=== PATIENT | male | born 1950 | race Caucasian/White ===

== ENCOUNTER 2016-10-09 21:16 | Emergency (ER) | payer OTHER ==
[~2016-10-09] VITALS: Ht 180.3 cm; Wt 110.0 kg
[~2016-10-09 21:16] MED LIST: ASPI81 PO; CORE25TA PO; CYCL-36 PO; FISH1000 PO; GLUCTAB OR; IMDU30TA PO; LISI10TA PO; LORTA10 PO; NORV2.5T11 PO; ROSU20 PO; TAB-TAB PO
[2016-10-09 21:22] VITALS: BP 215/97; PULSE 59; RESP 18; TEMP 98.2; O2SAT 92
--- NOTE | 2016-10-09 21:22 | PD ---
HPI Chief Complaint: Headache, high BP Time Seen by Provider: 21:22 Travel History International Travel<30 days: No Contact w/Intl Traveler<30days: No Traveled to known affect area: No History of Present Illness HPI 66-year-old male came to the emergency room with history of headache and hypertension. Patient says that he has had this headache for 1 week now. He called EMS today and they noticed that his blood pressure was above 200. He is describing the headache in the frontal area with no radiation. He vomited 3 times this morning. No history of fever or chills. Patient was afebrile in the emergency room. He has history of congestive heart failure and has been on Lasix. He requires CPAP at home and has been using it. He does not usually get headaches and this time he has been unable to control it with Tylenol and Motrin. No aggravating or relieving factors that he is identified. He is awake and answering questions appropriately. His blood pressure upon arrival was 215 systolic. Patient says that he was diagnosed with cellulitis of his right leg. His primary care did an ultrasound to rule out DVT and it was negative. He was started on antibiotic which was amoxicillin along with 2 shots of Rocephin. He says his leg feels better now. [facility] Past Medical History Narrative Medical List of his past medical, surgical, social and family history reviewed from the nursing note. Cardiac Catheterization: Yes (1998) Cardiovascular Problems: Yes (4 CARDIAC CATHS) High Cholesterol: Yes Chest Pain: Yes Congestive Heart Failure: Yes COPD: Yes Coronary Artery Disease: Yes Diabetes: Yes Diminished Hearing: No GERD: Yes Hypertension: Yes Immune Disorder: Yes (MEDICATION INDUCED LUPUS) Kidney Stones: Yes Musculoskeletal: No Neurologic: No Psychiatric: No Respiratory: Yes Myocardial Infarction: Yes Renal Failure: Yes Sleep Apnea: Yes (USES CPAP AT HOME ) Past Surgical History Abdominal Surgery: Yes (BILAT INGUINAL HERNIA REPAIR) Cardiac Surgery: Yes (OPEN HEART SURGERY CABG X5) Coronary Artery Bypass Graft: Yes (1998) Tonsillectomy: Yes Other Surgery: Yes Family History Family Hypercholesterolemia: Yes Social History Alcohol Use: No Tobacco Use: Yes (1 PPD) Substance Use: No Allergies-Medications (Allergen,Severity, Reaction): Coded Allergies: Cipro (Verified Allergy, Severe, HIVES, SOB, 10/09/16) Hydralazine (Verified Allergy, Severe, DRUG INDUCED LUPUS, 10/09/16) Sulfa (Verified Allergy, Severe, HIVES, SOB, 10/09/16) Keflex (Verified Allergy, Unknown, hives, 10/09/16) Advair (Verified Adverse Reaction, Severe, 10/09/16) Chantix (Verified Adverse Reaction, Severe, SUICIDAL, 10/09/16) Percocet (Verified Adverse Reaction, Severe, HALLUCINATIONS, 10/09/16) Comments List of his allergies reviewed from the nursing note Reported Meds & Prescriptions Reported Meds & Active Scripts Active Clonidine (Clonidine HCl) 0.1 Mg Tab 0.1 Mg PO BID PRN Omxjedswws-Hdoixeyinfvzj-Ewaufdqm 50-325-40 Mg Cap 1-2 Cap PO Q4H PRN Do not exceed 6 capsules/day. Reported Metformin (Metformin HCl) 500 Mg Tab 500 Mg PO DAILY With a meal Citalopram (Citalopram Hydrobromide) 20 Mg Tab 20 Mg PO DAILY Gabapentin 600 Mg Tab 600 Mg PO TID Aspirin 81 Mg Chew 81 Mg CHEW DAILY Fenofibrate 160 Mg Tab 160 Mg PO DAILY Glipizide 5 Mg Tab 2.5 Mg PO BIDAC Take 30 minutes before a meal Omeprazole 20 Mg Tab 20 Mg PO DAILY Ibuprofen 800 Mg Tab 800 Mg PO Q6HR PRN Atorvastatin (Atorvastatin Calcium) 80 Mg Tab 80 Mg PO HS Losartan (Losartan Potassium) 100 Mg Tab 100 Mg PO DAILY Carvedilol 25 Mg Tab 25 Mg PO BID Isosorbide Mononitrate ER (Isosorbide Mononitrate) 30 Mg Irish 30 Mg PO BID Narrative Medication Most of his home medications reviewed from the nursing note Review of Systems Except as stated in HPI: all other systems reviewed are Neg Physical Exam Narrative GENERAL: Awake, alert, morbidly obese, moderate distress SKIN: Focused skin assessment warm/dry. HEAD: Atraumatic. Normocephalic. EYES: Pupils equal and round. No scleral icterus. No injection or drainage. ENT: No nasal bleeding or discharge. Mucous membranes pink and moist. NECK: Trachea midline. No JVD. Neck is supple with no meningismus. CARDIOVASCULAR: Regular rate and rhythm. No murmur appreciated. RESPIRATORY: No accessory muscle use. Bibasilar crackles GASTROINTESTINAL: Abdomen soft, non-tender, nondistended. Hepatic and splenic margins not palpable. MUSCULOSKELETAL: No obvious deformities. No clubbing. No cyanosis. Bilateral pedal edema right more than left. NEUROLOGICAL: Awake and alert. No obvious cranial nerve deficits. Motor grossly within normal limits. Normal speech. PSYCHIATRIC: Appropriate mood and affect; insight and judgment normal. Data Data Last Documented VS Vital Signs Date Time Temp Pulse Resp B/P Pulse Ox O2 Delivery O2 Flow Rate FiO2 10/10/16 00:13 96 Nasal Cannula 2.00 10/10/16 00:06 98.7 63 22 161/79 Orders Electrocardiogram (10/09/16 21:32) Prothrombin Time / Inr (Pt) (10/09/16 21:32) Complete Blood Count With Diff (10/09/16 21:32) Basic Metabolic Panel (Bmp) (10/09/16 21:32) Creatine Kinase (Cpk) (10/09/16 21:32) Troponin I (10/09/16 21:32) Ct Brain W/O Iv Contrast(Rout) (10/09/16 21:32) Chest, Single Ap (10/09/16 21:32) Ecg Monitoring (10/09/16 21:32) Iv Access Insert/Monitor (10/09/16 21:32) Oximetry (10/09/16 21:32) Sodium Chloride 0.9% Flush (Ns Flush) (10/09/16 21:45) Prochlorperazine Inj (Compazine Inj) (10/09/16 21:45) B-Type Natriuretic Peptide (10/09/16 21:32) Clonidine (Catapres) (10/09/16 21:45) Isosorbide Dinitrate (Isordil) (10/09/16 23:30) Clonidine (Catapres) (10/09/16 23:30) Morphine Inj (Morphine Inj) (10/10/16 00:00) Albuterol-Ipratropium Neb (Duoneb Neb) (10/10/16 00:15) Furosemide Inj (Lasix Inj) (10/10/16 00:15) Labs Laboratory Tests Test 10/09/16 21:35 White Blood Count 14.2 TH/MM3 Red Blood Count 4.85 MIL/MM3 Hemoglobin 14.9 GM/DL Hematocrit 43.1 % Mean Corpuscular Volume 88.8 FL Mean Corpuscular Hemoglobin 30.7 PG Mean Corpuscular Hemoglobin 34.6 % Concent Red Cell Distribution Width 14.8 % Platelet Count 261 TH/MM3 Mean Platelet Volume 8.8 FL Neutrophils (%) (Auto) 80.4 % Lymphocytes (%) (Auto) 9.8 % Monocytes (%) (Auto) 7.7 % Eosinophils (%) (Auto) 1.6 % Basophils (%) (Auto) 0.5 % Neutrophils # (Auto) 11.4 TH/MM3 Lymphocytes # (Auto) 1.4 TH/MM3 Monocytes # (Auto) 1.1 TH/MM3 Eosinophils # (Auto) 0.2 TH/MM3 Basophils # (Auto) 0.1 TH/MM3 CBC Comment DIFF FINAL Differential Comment Prothrombin Time 11.7 SEC Prothromb Time International 1.1 RATIO Ratio Sodium Level 144 MEQ/L Potassium Level 3.6 MEQ/L Chloride Level 105 MEQ/L Carbon Dioxide Level 32.3 MEQ/L Anion Gap 7 MEQ/L Blood Urea Nitrogen 9 MG/DL Creatinine 1.19 MG/DL Estimat Glomerular Filtration 61 ML/MIN Rate Random Glucose 113 MG/DL Calcium Level 9.4 MG/DL Total Creatine Kinase 91 U/L Troponin I 0.03 NG/ML B-Type Natriuretic Peptide 471 PG/ML MDM Medical Decision Making Medical Screen Exam Complete: Yes Emergency Medical Condition: Yes Medical Record Reviewed: Yes Interpretation(s) Twelve-lead EKG was reviewed by me. Normal sinus rhythm, left axis deviation, right bundle branch block, nonspecific ST-T wave changes, bradycardia. Heart rate of 59 bpm. Differential Diagnosis Tension headache, status migrainous, intracranial bleed, hypertensive urgency, congestive heart failure Narrative Course 10:11 PM awaiting for the blood test results to come back. Patient was given IV Compazine for the headache. I also ordered 0.2 mg of clonidine for the blood pressure. I will reassess him in a bit. 12:04 AM I reassessed the patient. His blood pressure had remained high and I gave a dose of Imdur and a second dose of clonidine. When I went back to check his blood pressure was 160 systolic. Patient told me that his headache was 9 out of 10 and he was feeling claustrophobic. I offered him some anxiolytic and he refused and said that he needs something stronger for his headache since the medications given so far are not helping. I let him know that I would order the morphine but that will not take care of the underlying cause of the headache. My nurse just came out of the room and said that patient said his headache was easing off and this was prior to getting morphine. 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 At this point given the rest of the negative workup I'm planning to discharge him. His chest x-ray was suggestive of congestive heart failure. He'll get 40 mg of IV Lasix as well. Procedures EKG Prior to Arrival: No Diagnosis Primary Impression: Hypertensive urgency Additional Impressions: Headache Qualified Code: R51 - Acute intractable headache, unspecified headache type Congestive heart failure Qualified Code: I50.9 - Chronic congestive heart failure, unspecified congestive heart failure type Referrals: Primary Care Physician 2 days Additional Instructions: Follow-up with your primary care in couple days. Return to the ER if the condition worsens or any other new concerns. Take the additional blood pressure medication prescribed to you only if the blood pressure starts to go above 180 systolic. Med/Other Pt SpecificInfo: Prescription(s) given Scripts Clonidine 0.1 Mg Tab0.1 Mg PO BID PRN (SBP> OR = 180, DBP> OR = 100) #30 TAB Ref 0 Prov:Dane Benito MD 10/10/16 Osxpocmbpt-Urfxzdqrpbdde-Mnirmewm 50-325-40 Mg Cap1-2 Cap PO Q4H PRN (headache) #30 CAP Do not exceed 6 capsules/day. Prov:Dane Benito MD 10/10/16 Disposition: 01 DISCHARGE HOME Condition: Stable Dane Benito MD October 09, 2016 21:22
[2016-10-09] MEDS ORDERED: SODIUM CHLORIDE 0.9% FLUSH 10 ML FLUSH IVF PRN (21:45)
[2016-10-09] MEDS ORDERED: cloNIDine HCL 0.2 MG TAB PO ONE (21:45)
[2016-10-09] MEDS ORDERED: PROCHLORPERAZINE INJ 10 MG/2 ML VIAL IV PUSH ONE (21:45)
--- NOTE | 2016-10-09 22:01 | RADRPT ---
EXAM DATE/TIME: 10/09/2016 21:40 [facility] COMPARISON: CT BRAIN W/O CONTRAST, January 16, 2012, 13:22. INDICATIONS : Cephalgia. RADIATION DOSE: 56.35 CTDIvol (mGy) MEDICAL HISTORY : Chronic obstructive pulmonary disease. Gastroesophageal reflux disease. Chronic obstructive pulmonary disease.Congestive heart failure. Coronary artery disease. Diabetes. Renal adriel lure. SURGICAL HISTORY : CABG Cardiac catherization. ENCOUNTER: Initial ACUITY: 3 days PAIN SCALE: 10/10 LOCATION: cranial TECHNIQUE: Multiple contiguous axial images were obtained of the head. Using automated exposure control and adjustment of the mA and/or kV according to patient size, radiation dose was kept as low as reasonably achievable to obtain optimal diagnostic quality images. FINDINGS: CEREBRUM: The ventricles are normal for age. No evidence of midline shift, mass lesion, hemorrha ge or acute infarction. No extra-axial fluid collections are seen. POSTERIOR FOSSA: The cerebellum and brainstem are intact. The 4th ventricle is midline. The cer ebellopontine angle is unremarkable. EXTRACRANIAL: The visualized portion of the orbits is intact. SKULL: The calvaria is intact. No evidence of skull fracture. CONCLUSION: Negative for an acute process. Gabino Arce MD FACR on October 09, 2016 at 21:59 Board Certified Radiologist. This report was verified electronically.
[2016-10-09 22:06] VITALS: BP 193/93; PULSE 59; RESP 18; O2SAT 93
[2016-10-09 22:15] LABS: AUTOMATED NEUTROPHIL # 11.4 TH/MM3 (1.8-7.7); BASOPHIL # 0.1 TH/MM3 (0-0.2); BASOPHIL % 0.5 % (0.0-2.0); EOSINOPHIL # 0.2 TH/MM3 (0-0.4); EOSINOPHIL % 1.6 % (0.0-4.0); HEMATOCRIT 43.1 % (39.0-51.0); HEMO FLAGS DIFF FINAL; LYMPH % 9.8 % (9.0-44.0); LYMPHOCYTE # 1.4 TH/MM3 (1.0-4.8); MEAN CELL VOLUME 88.8 FL (80.0-100.0); MEAN CORPUSCULAR HEMOGLOBIN 30.7 PG (27.0-34.0); MEAN CORPUSCULAR HGB CONC 34.6 % (32.0-36.0); MONO % 7.7 % (0.0-8.0); NEUT % 80.4 % (16.0-70.0); PLATELET COUNT 261 TH/MM3 (150-450); RED BLOOD COUNT 4.85 MIL/MM3 (4.50-5.90); RED CELL DISTRIBUTION WIDTH 14.8 % (11.6-17.2); WHITE BLOOD COUNT 14.2 TH/MM3 (4.0-11.0)
--- NOTE | 2016-10-09 22:24 | RADRPT ---
EXAM DATE/TIME: 10/09/2016 21:46 [facility] COMPARISON: No previous studies available for comparison. INDICATIONS : Headache for three days without relief. MEDICAL HISTORY : Chronic obstructive pulmonary disease. Congestive heart failure. Gastroesophageal reflux disease. Coronary artery disease SURGICAL HISTORY : CABG. CABG. Cardiac catheterization ENCOUNTER: Initial ACUITY: 3 days PAIN SCORE: 4/10 LOCATION: Bilateral upper chest FINDINGS: The heart is enlarged. Mild interstitial edema is present. There is minimal blunting in the left co stophrenic sulcus. Sternal wires from previous bypass are noted. There is no pneumothorax. CONCLUSION: 1. Moderate congestive failure. 2. Blunting of the left costophrenic sulcus, stable in the interval. Gabino Arce MD FACR on October 09, 2016 at 22:19 Board Certified Radiologist. This report was verified electronically.
[2016-10-09 22:26] LABS: INTERNATIONAL NORMALIZED RATIO 1.1 RATIO; PROTHROMBIN TIME - PATIENT 11.7 SEC (9.8-11.6)
[2016-10-09 22:28] LABS: BICARBONATE 32.3 MEQ/L (21.0-32.0); POTASSIUM 3.6 MEQ/L (3.5-5.1)
[2016-10-09 22:51] VITALS: BP 228/109; PULSE 61; RESP 20; O2SAT 96
[2016-10-09] MEDS ORDERED: ISOSORBIDE DINITRATE 10 MG TAB PO ONE (23:30)
[2016-10-09] MEDS ORDERED: cloNIDine HCL 0.1 MG TAB PO ONE (23:30)
[2016-10-09 23:40] VITALS: BP 181/90; PULSE 60; RESP 20; O2SAT 93
[2016-10-09] MEDS ORDERED: ISOS30TA3 PO (23:46)
[2016-10-09] MEDS ORDERED: CARV25TA PO (23:47)
[2016-10-09] MEDS ORDERED: CITA20TA4 PO (23:47)
[2016-10-09] MEDS ORDERED: ATOR1TAB18 PO (23:47)
[2016-10-09] MEDS ORDERED: IBUP800T23 PO (23:47)
[2016-10-09] MEDS ORDERED: FENO160T PO (23:47)
[2016-10-09] MEDS ORDERED: LOSA100T PO (23:47)
[2016-10-09] MEDS ORDERED: GABA600T PO (23:47)
[2016-10-09] MEDS ORDERED: ASPI81CH CHEW (23:47)
[2016-10-09] MEDS ORDERED: METF500T PO (23:47)
[2016-10-09] MEDS ORDERED: GLIP5TAB8 PO (23:47)
[2016-10-09] MEDS ORDERED: OMEP20TA PO (23:47)
[2016-10-10] MEDS ORDERED: MORPHINE SULFATE 4 MG/ML INJ IV PUSH ONE
[2016-10-10 00:06] VITALS: BP 161/79; PULSE 63; RESP 22; TEMP 98.7; O2SAT 92
[2016-10-10] MEDS ORDERED: BUTACAP77 PO (00:08)
[2016-10-10] MEDS: RESP: ALBUTEROL 2.5 MG/IPRATROPIUM 0.5 MG NEB (SCH) INH ×2 (00:10→00:11)
[2016-10-10] MEDS ORDERED: CLON0.1T PO (00:11)
[2016-10-10 00:13] VITALS: O2SAT 96
[2016-10-10] MEDS ORDERED: FUROSEMIDE 40 MG/4 ML VIAL IV PUSH ONE (00:15)
--- NOTE | 2016-10-10 15:16 | EKG ---
Date Performed: 10/09/2016 Time Performed: 22:01:15 PTAGE: 66 years EKG: Sinus Bradycardia with first degree AV block with MS interval of .26 Right bundle brach blo ck. Left axis deviation. Nonspecific ST wave change. When compared to previous tracing, no significan t change. ABNORMAL ECG PREVIOUS TRACING : 06/26/2009 13.48 DOCTOR: Eduardo Borges Interpretating Date/Time 10/10/2016 15:15:21
== END 2016-10-10 01:00 | disposition home or self-care (01) ==
LOC: NEPE 21:16
DX: I16.0 Hypertensive urgency (principal); R51 Headache; I50.9 Heart failure, unspecified; R11.10 Vomiting, unspecified; R94.31 Abnormal electrocardiogram [ECG] [EKG]; I10 Essential (primary) hypertension; E11.9 Type 2 diabetes mellitus without complications; E78.00 Pure hypercholesterolemia, unspecified; G47.30 Sleep apnea, unspecified; I25.2 Old myocardial infarction; F17.200 Nicotine dependence, unspecified, uncomplicated; Z79.84 Long term (current) use of oral hypoglycemic drugs; Z86.79 Personal history of other diseases of the circulatory system; Z87.19 Personal history of other diseases of the digestive system; Z86.2 Personal history of diseases of the blood and blood-forming organs and certain disorders involving the immune mechanism; Z87.448 Personal history of other diseases of urinary system; Z87.09 Personal history of other diseases of the respiratory system
CPT/HCPCS: 70450; 71010; 80048; 82550; 83880; 84484; 85025; 85610; 93005; 94640; 94664; 96374; 96375; 99285; J0780; J2270